=== PATIENT | female | born 1960 | race Caucasian/White ===

== ENCOUNTER → 2017-12-30 | Outpatient (CLI) | payer BC ==
[2017-12-30 16:24] LABS: Appearance,Urine Clear (Clear); Bilirubin,Urine Negative (Negative); Blood,Urine Negative (Negative); Color,Urine Light Yellow; Glucose,Urine (UA) Negative (Negative); Ketones,Urine Negative (Negative); Leukocyte Esterase,Urine Negative (Negative); Nitrite,Urine Negative (Negative); Protein,Urine Negative (Negative); Specific Gravity,Urine 1.007 (1.001-1.035); Urobilinogen,Urine <2.0 mg/dL (<2.0)
[2017-12-30 16:25] LABS: HCT 45.8 % (34.0-46.0); MCH 30.1 pg (25.0-35.0); MCHC 32.9 g/dL (31.0-37.0); MCV 91.4 fL (80.0-100.0); Mean Platelet Volume 6.5; Platelet Count 235 k/uL (150-450); RBC 5.01 m/uL (3.80-5.40); RDW 12.6 % (11.5-15.5); WBC 7.7 k/uL (3.8-10.6)
[2017-12-30 16:33] LABS: ALT 49 U/L (9-52); AST 29 U/L (14-36); Albumin 4.6 g/dL (3.5-5.0); Alkaline Phosphatase 74 U/L (38-126); Anion Gap 10 mmol/L; Blood Urea Nitrogen 22 mg/dL (7-17); Calcium 10.3 mg/dL (8.4-10.2); Carbon Dioxide 31 mmol/L (22-30); Chloride 103 mmol/L (98-107); Glucose 120 mg/dL (74-99); Partial Thromboplastin Time 22.9 sec (22.0-30.0); Potassium 3.7 mmol/L (3.5-5.1); Prothrombin Time 9.7 sec (9.0-12.0); Sodium 144 mmol/L (137-145); Total Bilirubin 0.5 mg/dL (0.2-1.3); Total Protein 7.6 g/dL (6.3-8.2)
== END | disposition home or self-care (01) ==
LOC: LABPAT 14:46
PROVIDERS: ATTEND Orthopaedic Surgery
DX: Z01.818 Encounter for other preprocedural examination (principal); Z01.812 Encounter for preprocedural laboratory examination
CPT/HCPCS: 36415; 80053; 81003; 85027; 85610; 85730; 87070; 93005

== ENCOUNTER 2018-01-17 10:49 | Inpatient (IN) | payer BC ==
[2018-01-06 12:13] VITALS: BMI 38.2
[~2018-01-17 10:49] MED LIST: ACETAMINOPHEN TAB 500 MG TAB PO ONE; DEXAMETHASONE SOD PHOSPHATE 10 MG/ML 1 ML VIAL IV ONE; LIDOCAINE 1% 20 ML VIAL (10MG/ML) FOR IV START INTRADERMA PRN; MIDAZOLAM 2 MG/2 ML VIAL IV PRN; ONDANSETRON 4 MG/2 ML VIAL IVP ONE; TRANEXAMIC ACID 1,000 MG in SODIUM CHLORIDE 0.9% 50 ML IVPB ONE; ceFAZolin IN SWFI 2 GM/20 ML SYRINGE IVP ONE; fentaNYL (PF) 50 MCG/ML 2 ML AMP IV PRN
[2018-01-17 11:39] LABS: Glucose,Whole Blood 121 mg/dL (75-99)
[2018-01-17] MEDS: LACTATED RINGERS 1,000 ML IV SCH ×4 (11:44→21:08)
[2018-01-17] MEDS ORDERED: ceFAZolin 3,000 MG in SODIUM CHLORIDE 0.9% IRRIGATIO 3,000 ML IRRIGATION ONE (12:40)
[2018-01-17] MEDS ORDERED: SODIUM CHLORIDE 0.9% 100 ML BAG ONE (12:40)
[2018-01-17] MEDS ORDERED: MIDAZOLAM 2 MG/2 ML VIAL ONE (12:40)
[2018-01-17] MEDS ORDERED: TRANEXAMIC ACID 1,000 MG/10 ML VIAL ONE (12:40)
[2018-01-17] MEDS ORDERED: PROPOFOL 10 MG/ML 20 ML VIAL IV ONE (12:40)
[2018-01-17] MEDS ORDERED: fentaNYL (PF) 50 MCG/ML 2 ML AMP ONE (12:40)
[2018-01-17] MEDS: ROPIVACAINE 246.25 MG, EPINEPHrine 0.5 MG, KETOROLAC 30 MG, cloNIDine HCL/PF 80 MCG, WA... MISCELLANE ONE ×10 (13:19→14:02)
[2018-01-17] MEDS ORDERED: MAGNESIUM HYDROXIDE 2,400 MG/10 ML CUP PO PRN (14:55)
[2018-01-17] MEDS ORDERED: NA PHOS,M-B/NA PHOS,DI-BA 133 ML ENEMA RECTAL PRN (14:55)
[2018-01-17] MEDS ORDERED: TEMAZEPAM 15 MG CAP PO PRN (14:55)
[2018-01-17] MEDS ORDERED: BISACODYL 10 MG SUPP RECTAL PRN (14:55)
[2018-01-17] MEDS ORDERED: HYDROcodone/APAP 5-325MG 1 EACH TAB PO PRN (14:55)
[2018-01-17] MEDS ORDERED: HYDROmorphone 1 MG/ML 1 ML SYRINGE IVP PRN ×2 (14:55)
[2018-01-17] MEDS ORDERED: NALOXONE 0.4 MG/ML 1 ML VIAL IV PRN (14:55)
--- NOTE | 2018-01-17 15:08 | P.OP ---
Date of Procedure: 01/17/18 Procedure(s) Performed: PREOPERATIVE DIAGNOSIS: Left knee severe osteoarthritis with genu varum POSTOPERATIVE DIAGNOSIS: Left knee severe osteoarthritis with genu varum OPERATION: Left knee cemented total replacement arthroplasty. ANESTHESIA: Spinal ESTIMATED BLOOD LOSS: 100 ml. MARINE STEAM FITTER: Jammie Hutchins PA-C (assistance with: patient positioning, retraction, exposure, hemostasis, leg positioning, implantation, irrigation, closure, dressing) COMPLICATIONS: None apparent. COMPONENTS IMPLANTED: Persona system from [employer] INDICATIONS: Mrs. Reid is 57 year old with a history of left knee osteoarthritis. Conservative treatment has been tried and has been unsuccessful in controlling symptoms adequately. The operation of knee replacement has been discussed at length in the office, as well as potential risks and complications. These are inclusive of, but not limited to: bleeding, infection, scarring, discomfort, blood vessel and nerve damage, need for further surgery, failure to relieve symptoms, persistence, recurrence, or worsening of problems, loosening, dislocation, wear, blood clot, pulmonary embolism, , gait dysfunction, stiffness, and other risks as discussed in the office. The patient elects to proceed and the consent form has been signed. PROCEDURE: The patient was taken to the operating room and positioned on the operating room table in the supine position. Anesthesia was initiated. Care was taken to make sure that all pressure points were adequately padded. The operative lower extremity was prepped and draped in the usual aseptic fashion using ChloraPrep. Ioban drape was used for the case and the patient received intravenous antibiotics within one hour of the incision. A pneumotourniquet and leg turpin were used for the case. The limb was exsanguinated with an Esmarch bandage and the tourniquet was inflated to 350 mmHg. Time-out was called confirming the patient's identity, side, procedure and administration of antibiotics and tranexamic acid, 1 g IV. The incision was then created midline directly over the knee, carried down through skin and into the subcutaneous tissues and down to fascia. Full thickness subcutaneous medial flap was developed. Medial parapatellar arthrotomy was performed and the interior of the knee was inspected. There was end-stage osteoarthritis of the knee with a mild to moderate genu varum type deformity. The fat pad was excised and proximal medial release on the tibia was completed using meticulous dissection and a curved osteotome. The anterior cruciate ligament was taken down. Note was made of significant attrition of the anterior and significant degenerative appearance of the posterior cruciate ligaments. The exposure was excellent. The knee was flexed 90 degrees and the patella was everted. A spot was chosen on the femur approximately 1 cm anterior to the posterior cruciate ligament insertion and an intramedullary hole was created within the femur. The intramedullary guide was then set to 5 degrees of valgus. The distal cutting block was attached and pinned into position. An appropriate amount of distal femoral resection was set. The oscillating saw was then used to make the distal femoral cut. This cut was confirmed to be flat with the flat end of an osteotome. The retractors were placed around the tibia and the tibial surface was addressed. The angle and depth of resection was adjusted using an extramedullary cutting guide. The guide had a built-in 3 degree posterior slope cut. Once the cutting guide was adjusted appropriately and in line with the axis of the tibia and confirmed to be in good position in relation to the second metatarsal and transmalleolar axis, the tibial cut was then created with protection of the posterior neurovascular structures and the collateral ligaments. The tibial cut surface was removed and sized. Femoral sizing was then accomplished using anterior referencing. Care was taken to analyze the posterior condyles for signs of deficiency or severe wear, and adjustments to the guide were made, as appropriate. 3 degree external rotation pins were placed. The cutting jig for the femur was applied to these pins. The planned cuts were further analyzed prior to performing them with the oscillating saw. No femoral notching was produced. Bone fragments were removed and the cut surfaces were finished, as necessary, with a reciprocating saw. Spacer block technique was then used to confirm that the flexion and extension gaps were equal. Soft tissue releases and adjustment of the tibial and/or femoral cuts were made, as necessary, until the gaps were equal. This included release of the posterior cruciate ligament, which was tight in this patient. The femur was then further finished for a posterior cruciate ligament substituting component. Patellar resurfacing was performed using a reamer. The size of the required patellar component was estimated and the patellar surface was then reamed down to a residual thickness which would recreate the [place] thickness with the component. The exact placement of the patellar component was adjusted for position based on preoperative x-rays and intraoperative findings. Prior to placing trial components, anesthetic solution consisting of ropivicaine with epinephrine, ketorolac, and clonidine was injected carefully and methodically in a grid pattern using aspiration technique into the soft tissue around the knee circumferentially, starting with the deeper tissues first and progressing to fascia, and then finally the skin/subcutaneous tissue. Particular care was taken when injecting the posterior capsule. The trial components were inserted. The tibial tray was allowed to self center and the patella was noted to track very well. The position of the tibial component was marked and the tibia was then finished for a stemmed tibial component. Cement was mixed on the back table and applied to the final components. Trial components were removed and the cut surfaces of the bone were pulse lavaged thoroughly and dried. Cement was then applied to the tibial surface and pressurized into the surface using finger pressurization technique. The tibial component was then applied and excess cement was removed after it was impacted securely and noted to be flush with the cut surface. In similar fashion, the cement was applied to the cut femoral surface, pressurized in using finger pressurization and the component was impacted into place. Excess cement was removed. The polyethylene spacer was then implanted and locked into position. The patellar component was then applied in similar technique and a patellar clamp was used to hold the patella in place as the cement hardened. Once the cement had fully hardened, the knee was reinspected. Any other cement extrusion was removed and final kinematic testing showed range of motion from 0 to 130 degrees with excellent stability, both medially and laterally and appropriate alignment of the leg. Patellar tracking was excellent. The knee was then thoroughly pulse lavaged with normal saline. The tourniquet was deflated and hemostasis was obtained with electrocautery and IV tranexamic acid, 1 g given prior to inflation of the tourniquet and another gram given at the time of closure. Closure was with #2 Ethibond in the fascia and supplemented with #2 Quill, 2-0 Vicryl suture was used for the subcutaneous tissues and 3-0 Quill for the skin. Dermabond/Steri-Strips were then applied. A lightly compressive dressing was applied using Webril and an Shantanu wrap. The patient was then transferred to stretcher and taken to the recovery room in stable condition. Sponge and needle counts were correct.
--- NOTE | 2018-01-17 15:21 | XR ---
EXAMINATION TYPE: XR knee limited LT DATE OF EXAM: 01/17/2018 CLINICAL HISTORY: Postoperative evaluation Two views of the left knee are submitted. Identified are changes of total knee arthroplasty with fem oral and tibial components appearing well seated. Postsurgical soft tissue changes are noted. Align ment is anatomic.
[2018-01-17 16:48] LABS: Glucose,Whole Blood 133 mg/dL (75-99)
[2018-01-17] MEDS: HYDROmorphone 1 MG/ML 1 ML SYRINGE IVP PRN ×2 (17:21→21:05)
[2018-01-17] MEDS ORDERED: WARFARIN 5 MG TAB PO ONE (18:00)
[2018-01-17 20:17] LABS: Glucose,Whole Blood 145 mg/dL (75-99)
[2018-01-17] MEDS ORDERED: SENNOSIDES-DOCUSATE SODIUM 1 EACH TAB PO SCH (21:00)
[2018-01-17] MEDS: ceFAZolin IN SWFI 2 GM/20 ML SYRINGE IVP SCH (21:06)
[2018-01-17] MEDS: INSULIN ASPART 100 UNIT/ML 1 ML 10 ML VIAL SQ SCH (21:08)
[2018-01-17] MEDS ORDERED: ONDANSETRON 4 MG/2 ML VIAL IVP PRN (21:29)
--- NOTE | 2018-01-17 23:03 | P.CONS ---
History of Present Illness - Reason for Consult Consult date: 01/17/18 medical management post op for DM and HTN Requesting physician: Cedric Barrow - Chief Complaint scheduled left TKA - History of Present Illness 57-year-old female with history of diabetes mellitus and hypertension. Patient presented for scheduled left totalknee arthroplasty due to long- standing osteoarthritis and pain limiting daily activity. Patient tolerated procedure well with no observed immediate postoperative complications. Patient currently denies any chest pain or trouble breathing denies any fevers or chills denies any coughing denies any GI bleeding denies any abdominal pain nausea vomiting or any changes in her bowel or urinary habits. Patient tolerated by mouth intake postop, passed urine no Occasions. Currently feels comfortable with pain controlled with pain medications. Review of Systems Pertinent positives as noted in HPI. All other systems were reviewed and are negative Past Medical History Past Medical History: Diabetes Mellitus, Hypertension, Osteoarthritis (OA) History of Any Multi-Drug Resistant Organisms: None Reported Past Surgical History: Orthopedic Surgery Additional Past Surgical History / Comment(s): ORIF LT ARM. COLONOSCOPY. D & C Past Anesthesia/Blood Transfusion Reactions: No Reported Reaction Smoking Status: Never smoker - Past Family History Mother Family Medical History: No Reported History Medications and Allergies Home Medications Medication Instructions Recorded Confirmed Type Calcium Carbonate/Vitamin D3 1 tablet PO DAILY 01/06/18 01/17/18 History [Calcium 600-Vit D3 400 Tablet] Calcium Phos/Vit D3/Mag Oxide 1 tab PO DAILY 01/06/18 01/17/18 History [Posture-D Caplet] Calcium Polycarbophil [Fibercon] 625 mg PO DAILY 01/06/18 01/17/18 History Cholecalciferol (Vitamin D3) 2,000 unit PO DAILY 01/06/18 01/17/18 History [Vitamin D3] Naproxen Sodium [Aleve] 220 mg PO DAILY 01/06/18 01/17/18 History Olmesartan/Hydrochlorothiazide 1 tab PO DAILY 01/06/18 01/17/18 History [Olmesartan-Hctz 40-25 mg Tab] [place]bph[place] 3-500mg 500 mg PO DAILY 01/06/18 01/17/18 History Potassium Chloride [K-Tab ER] 10 meq PO DAILY 01/06/18 01/17/18 History metFORMIN HCL [Glucophage] 500 mg PO DAILY 01/06/18 01/17/18 History HYDROcodone/APAP 5-325MG [[place] 1 - 2 each PO Q4-6H PRN #50 tab 01/17/18 Rx 5-325] Sennosides-Docusate Sodium 1 tab PO BID #60 tablet 01/17/18 Rx [Senokot-S] Warfarin [Coumadin] 2.5 mg PO DAILY #1 tab 01/17/18 Rx Allergies Allergy/AdvReac Type Severity Reaction Status Date / Time No Known Allergies Allergy Verified 01/17/18 19:14 Physical Exam Vitals: Vital Signs Temp Pulse Resp BP Pulse Ox 01/17/18 18:34 74 16 129/85 96 01/17/18 18:04 66 16 116/74 94 L 01/17/18 17:30 68 16 143/68 98 01/17/18 17:06 74 16 123/78 95 01/17/18 16:45 72 16 117/75 97 01/17/18 16:20 71 16 117/72 96 01/17/18 16:05 72 16 114/72 94 L 01/17/18 15:45 73 16 113/65 92 L 01/17/18 15:37 70 16 108/65 94 L 01/17/18 15:15 72 16 114/67 99 01/17/18 15:00 72 16 116/66 99 01/17/18 14:52 97.6 F 74 16 116/66 98 01/17/18 11:37 98.4 F 79 16 145/90 94 L Intake and Output 01/17/18 01/17/18 01/17/18 06:59 14:59 22:59 Intake Total 701 675 Output Total 50 Balance 651 675 Intake: IV 701 675 Output: Estimated Blood Loss 50 Constitutional: No acute distress, conversant, pleasant Eyes: Anicteric sclerae, moist conjunctiva, no lid-lag Pupils equal round reactive to light ENMT: NC/AT Oropharynx clear, no erythema, exudates Neck: Supple, FROM, no masses, or JVD No carotid bruits No thyromegaly Lungs: Clear to auscultation Clear to percussion Normal respiratory effort, no accessory muscle use Cardiovascular: Heart regular in rate and rhythm, No murmurs, gallops, or rubs No peripheral edema Abdominal: Soft Nontender, no guarding, rebound or rigidity Abdomen moving with respiration Normoactive bowel sounds No hepatomegaly, No splenomegaly No palpable mass No abdominal wall hernia noted Skin: Normal temperature, tone, texture, turgor No induration No subcutaneous nodules No rash, lesions No ulcers Extremities: Surgical dressing and Shantanu wrap in over left lower extremity postoperatively looks dry and intact and clean No digital cyanosis No clubbing Pedal pulses intact and symmetrical Radial pulses intact and symmetrical No calf tenderness Psychiatric: Alert and oriented to person, place and time Appropriate affect fair judgment Neuro Muscles Strength 5/5 in all 4 extremities , except for limited exam over left lower extremity due to postoperative pain Sensation to light touch grossly present throughout Cranial nerves II-XII grossly intact No focal sensory deficits Lymphatics: no palpable cervical or supraclavicular , or inguinal lymph nodes Results Labs: Abnormal Lab Results - Last 24 Hours (Table) 01/17/18 01/17/18 01/17/18 Range/Units 11:37 16:43 20:04 POC Glucose (mg/dL) 121 H 133 H 145 H (75-99) mg/dL Assessment and Plan Assessment: 57 year old female , underwent scheduled left total knee arthroplasty , medicine consulted for post surgical medical management of her DM and hypertension, patient doing well, tolerated procedure with no observed immediate post operative complications Plan: post left total knee arthroplasty , POD #zero pain control DVT ppx per ortho hypertension currently controlled resume home meds olsartan HCTz Diabetes mellitus type II, controlle d hold metformin Insulin sliding scale while inpatient resume metformin upon discharge DVT ppx on coumadin per ortho for post knee replacement full code follow up morning labs Thank you for allowing us to participate in the care of this patient. Do not hesitate to contact us with questions. Someone can be reached from the [facility] hospitalist group at all hours of the day at [phone].
[2018-01-18] MEDS: LACTATED RINGERS 1,000 ML IV SCH (01:36)
[2018-01-18] MEDS: ceFAZolin IN SWFI 2 GM/20 ML SYRINGE IVP SCH (03:57)
[2018-01-18 07:30] LABS: Glucose,Whole Blood 122 mg/dL (75-99)
[2018-01-18] MEDS: INSULIN ASPART 100 UNIT/ML 1 ML 10 ML VIAL SQ SCH ×3 (07:30→13:06)
[2018-01-18 07:41] LABS: INR 1.3 (<1.2)
[2018-01-18 07:46] LABS: Basophils % (A) 0 %; Eosinophils % (A) 0 %; HCT 36.8 % (34.0-46.0); HGB 12.1 gm/dL (11.4-16.0); Lymphocytes # (A) 1.4 k/uL (1.0-4.8); Lymphocytes % (A) 14 %; MCH 30.2 pg (25.0-35.0); MCHC 32.8 g/dL (31.0-37.0); MCV 91.9 fL (80.0-100.0); Mean Platelet Volume 6.4; Monocytes # (A) 0.6 k/uL (0-1.0); Monocytes % (A) 6 %; Neutrophils # (A) 7.8 k/uL (1.3-7.7); Neutrophils % (A) 78 %; Platelet Count 232 k/uL (150-450); RBC 4.01 m/uL (3.80-5.40); RDW 12.4 % (11.5-15.5)
[2018-01-18 07:57] LABS: Anion Gap 8 mmol/L; Blood Urea Nitrogen 21 mg/dL (7-17); Calcium 8.9 mg/dL (8.4-10.2); Carbon Dioxide 28 mmol/L (22-30); Chloride 105 mmol/L (98-107); Glucose 123 mg/dL (74-99); Potassium 3.9 mmol/L (3.5-5.1); Sodium 141 mmol/L (137-145)
[2018-01-18] MEDS: HYDROcodone/APAP 5-325MG 1 EACH TAB PO PRN ×2 (08:25→14:22)
[2018-01-18] MEDS: hydrOXYzine PAMOATE 25 MG CAP PO PRN ×2 (08:26→14:22)
[2018-01-18] MEDS ORDERED: LOSARTAN 50 MG TAB PO SCH (09:00)
[2018-01-18] MEDS ORDERED: HYDROCHLOROTHIAZIDE 25 MG TAB PO SCH (09:00)
[2018-01-18 09:20] VITALS: BP 117/74; PULSE 72; RESP 18; TEMP 97.5
--- NOTE | 2018-01-18 09:40 | P.PN ---
Subjective Progress Note Date: 01/18/18 Principal diagnosis: Left knee pain Patient is a 57-year-old female with a past medical history of diabetes, hypertension, osteoarthritis who presented for an elective left total knee arthroplasty. She tolerated the procedure well with no immediate postoperative complications. Patient seen and examined at bedside. She states that she is having some increased pain this morning. She took 2 Seanor approximately 45 minutes only seemed to be kicking in. She was difficulty moving her knee secondary to stiffness and pain. She denies any nausea, vomiting, diarrhea, or constipation. She's not having a chest pain or shortness of breath. She has borderline diabetes back in June does not know her current hemoglobin A1c. She sees Paulino Farris out of [place] for her PCP. Objective - Vital Signs Vital signs: Vital Signs Temp 97.5 F L 01/18/18 07:00 Pulse 72 01/18/18 07:00 Resp 18 01/18/18 07:00 BP 117/74 01/18/18 07:00 Pulse Ox 95 01/18/18 07:00 Intake & Output 01/17/18 01/18/18 01/18/18 18:59 06:59 18:59 Intake Total 1376 450 Output Total 50 Balance 1326 450 Intake: IV 1376 Intake, IV Titration 200 Amount Lactated Ringers 1,000 ml 200 @ 100 mls/hr IV .Q10H CHARLES Rx#:[id number] Oral 250 Output: Estimated Blood Loss 50 Other: Voiding Method Toilet # Voids 1 - Exam General: non toxic, no distress, appears at stated age, obese Derm: warm, dry Head: atraumatic, normocephalic, symmetric Eyes: EOMI, no lid lag, anicteric sclera Mouth: no lip lesion, mucus membranes moist Cardiovascular: S1S2 reg, no murmur, positive posterior tibial pulse bilateral, Lungs: Decreased breath sounds bilateral bases, no rhonchi, no rales , no accessory muscle use Abdominal: soft, nontender to palpation, no guarding, no appreciable organomegaly Ext: Left lower extremity with dressing in place over medial knee no gross muscle atrophy, no edema, no contractures Neuro: CN II-XI grossly intact, no focal neuro deficits Psych: Alert, oriented, appropriate affect - Labs CBC & Chem 7: 01/18/18 06:19 01/18/18 06:19 Labs: Abnormal Lab Results - Last 24 Hours (Table) 01/17/18 01/17/18 01/17/18 Range/Units 11:37 16:43 20:04 Neutrophils # (1.3-7.7) k/uL INR (<1.2) BUN (7-17) mg/dL Glucose (74-99) mg/dL POC Glucose (mg/dL) 121 H 133 H 145 H (75-99) mg/dL 01/18/18 01/18/18 01/18/18 Range/Units 06:19 06:19 06:19 Neutrophils # 7.8 H (1.3-7.7) k/uL INR 1.3 H (<1.2) BUN 21 H (7-17) mg/dL Glucose 123 H (74-99) mg/dL POC Glucose (mg/dL) (75-99) mg/dL 01/18/18 Range/Units 07:17 Neutrophils # (1.3-7.7) k/uL INR (<1.2) BUN (7-17) mg/dL Glucose (74-99) mg/dL POC Glucose (mg/dL) 122 H (75-99) mg/dL Assessment and Plan Assessment: Osteoarthritis status post left total knee arthroplasty -DVT management per orthopedics surgery -PT/OT -Pain control -Fall precautions Diabetes mellitus type 2 controlled without complicating conditions -off of metformin -Sliding-scale insulin -Follow up with PCP 3 days after discharge Hypertension, controlled -Continue with hydrochlorothiazide, Cozaar -Continue to follow blood pressures Obesity, BMI 38.3 -Structured outpatient weight loss Patient is medically stable for discharge at the discretion of orthopedic surgery. Referred home health care's residential followed by Shilpa. Orders for medications placed on discharge plan. Discussed with nursing and case management.
--- NOTE | 2018-01-18 10:58 | P.DS ---
Providers Date of admission: 01/17/18 10:49 Expected date of discharge: 01/18/18 Attending physician: Yovanny Coello Consults: 01/17/18 14:55 Consult Physician Routine Consulting Provider: Paulino Farris Consult Reason/Comments: medical management Do you want consulting provider notified?: Yes 01/17/18 19:20 Consult Physician Routine Consulting Provider: Marissa Peñaloza Consult Reason/Comments: medical managmenet Do you want consulting provider notified?: Already Contacted Primary care physician: Stated None - Discharge Diagnosis(es) (1) Osteoarthritis of left knee Current Visit: Yes Status: Acute (2) Status post total left knee replacement Current Visit: Yes Status: Acute (3) Non-insulin dependent type 2 diabetes mellitus Current Visit: Yes Status: Acute Hospital Course: This is a 57-year-old female who was last seen with complaint of continued left knee pain. The patient has a known history of degenerative arthritis of the left knee and presents to discuss surgical options. After discussion and consideration the patient elects to proceed with total left knee arthroplasty. The patient is seen preoperatively by her primary care physician and cleared for surgery. The patient is admitted to [facility] for total left knee arthroplasty. The procedures performed without complication or sequelae. He is doing well postoperatively. Vital signs are stable at discharge. Labs are stable at discharge. the patient is ambulating well with walker with minimal assistance. The patient is discharged to home on postop day #1 pending medical clearance. Please see orders and refer to the med rec for accurate list of medications. Patient Condition at Discharge: Good Plan - Discharge Summary Discharge Rx Participant: Yes New Discharge Prescriptions: New HYDROcodone/APAP 5-325MG [[place] 5-325] 1 - 2 each PO Q4-6H PRN #50 tab PRN Reason: Pain Sennosides-Docusate Sodium [Senokot-S] 1 tab PO BID #60 tablet Warfarin [Coumadin] 2.5 mg PO DAILY #1 tab Continue Potassium Chloride [K-Tab ER] 10 meq PO DAILY metFORMIN HCL [Glucophage] 500 mg PO DAILY Olmesartan/Hydrochlorothiazide [Olmesartan-Hctz 40-25 mg Tab] 1 tab PO DAILY Calcium Polycarbophil [Fibercon] 625 mg PO DAILY [place] 3-500mg 500 mg PO DAILY No Action Cholecalciferol (Vitamin D3) [Vitamin D3] 2,000 unit PO DAILY Naproxen Sodium [Aleve] 220 mg PO DAILY Calcium Carbonate/Vitamin D3 [Calcium 600-Vit D3 400 Tablet] 1 tablet PO DAILY Calcium Phos/Vit D3/Mag Oxide [Posture-D Caplet] 1 tab PO DAILY Discharge Medication List Calcium Carbonate/Vitamin D3 [Calcium 600-Vit D3 400 Tablet] 1 tablet PO DAILY 01/06/18 [History] Calcium Phos/Vit D3/Mag Oxide [Posture-D Caplet] 1 tab PO DAILY 01/06/18 [ History] Calcium Polycarbophil [Fibercon] 625 mg PO DAILY 01/06/18 [History] Cholecalciferol (Vitamin D3) [Vitamin D3] 2,000 unit PO DAILY 01/06/18 [History] Naproxen Sodium [Aleve] 220 mg PO DAILY 01/06/18 [History] Olmesartan/Hydrochlorothiazide [Olmesartan-Hctz 40-25 mg Tab] 1 tab PO DAILY 02/13 [History] [place] 3-500mg 500 mg PO DAILY 01/06/18 [History] Potassium Chloride [K-Tab ER] 10 meq PO DAILY 01/06/18 [History] metFORMIN HCL [Glucophage] 500 mg PO DAILY 01/06/18 [History] HYDROcodone/APAP 5-325MG [[place] 5-325] 1 - 2 each PO Q4-6H PRN #50 tab 01/17/18 [Rx] Sennosides-Docusate Sodium [Senokot-S] 1 tab PO BID #60 tablet 01/17/18 [Rx] Warfarin [Coumadin] 2.5 mg PO DAILY #1 tab 01/17/18 [Rx] Follow up Appointment(s)/Referral(s): Jammie Hutchins PAC [PHYSICIAN HOTEL SERVICE SUPERVISOR] - 01/31/18 2:25 pm Paulino Farris, ISIDORO [REFERRING] - 1 Week Ambulatory/Diagnostic Orders: Continuous Passive Motion (CPM) Machine [DME.AMB1] Time Frame: 3 Weeks, Facility : [facility], Location: Case Management Continuous Passive Motion (CPM) Machine [DME.AMB1] Time Frame: 3 Weeks, Facility : [facility], Location: Case Management Prothrombin Time INR [LAB.AMB] Location: None Selected Prothrombin Time INR [LAB.AMB] Location: None Selected Activity/Diet/Wound Care/Special Instructions: May bear wt as tolerated with walker. May shower if no drainage from incision. CPM 5-6h daily. Discharge Disposition: HOME WITH HOME HEALTH SERVICES
[2018-01-18 11:51] LABS: Glucose,Whole Blood 137 mg/dL (75-99)
[2018-01-18] MEDS ORDERED: WARFARIN 5 MG TAB PO ONE (18:00)
== END 2018-01-18 15:10 | disposition home health service (06) | DRG 470 ==
LOC: 2ORMAIN 10:49 → 4SSUR 14:39
PROVIDERS: ADMIT Orthopaedic Surgery; ATTEND Orthopaedic Surgery
PROC: 0SRD0J9 Replacement of Left Knee Joint with Synthetic Substitute, Cemented, Open Approach (ICD-10-PCS; principal; 2018-01-17 12:30)
DX: M17.12 Unilateral primary osteoarthritis, left knee (principal); E11.9 Type 2 diabetes mellitus without complications; E66.9 Obesity, unspecified; Z68.38 Body mass index [BMI] 38.0-38.9, adult; Z71.3 Dietary counseling and surveillance; I10 Essential (primary) hypertension; M21.162 Varus deformity, not elsewhere classified, left knee; Z79.01 Long term (current) use of anticoagulants; Z79.84 Long term (current) use of oral hypoglycemic drugs; Z79.899 Other long term (current) drug therapy; Z83.3 Family history of diabetes mellitus; Z82.49 Family history of ischemic heart disease and other diseases of the circulatory system
CPT/HCPCS: 80048; 85025; 85610; 88300

== ENCOUNTER → 2018-04-05 | Outpatient (CLI) | payer BC ==
[2018-04-05 10:10] VITALS: BP 137/86; PULSE 80; RESP 18; TEMP 97.4; BMI 37.4
--- NOTE | 2018-04-05 10:38 | P.HPOB ---
History of Present Illness H&P Date: 04/05/18 Chief Complaint: The patient is here for her routine gynecologic exam and mammogram. This is a 57-year-old with an LMP of 2006. The patient is without gynecologic complaints and denies any postmenopausal bleeding. Review of Systems The patient has lost 7 pounds over the last year. She denies respiratory, cardiac, or G.I. problems. 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 History of Any Multi-Drug Resistant Organisms: None Reported Past Surgical History: Joint Replacement (Knee replacement), Orthopedic Surgery , Tubal Ligation Additional Past Surgical History / Comment(s): ORIF LT ARM. COLONOSCOPY 2013( multiple in past). D & C. 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 - Past Family History Mother Family Medical History: Diabetes Mellitus Additional Family Medical History / Comment(s): Aortic aneurysm Father Family Medical History: Myocardial Infarction ([place]) Son(s) Additional Family Medical History / Comment(s): at age 19 from an aortic transposition. Medications and Allergies Home Medications Medication Instructions Recorded Confirmed Type Calcium Carbonate/Vitamin D3 1 tablet PO DAILY 01/06/18 01/17/18 History [Calcium 600-Vit D3 400 Tablet] Calcium Phos/Vit D3/Mag Oxide 1 tab PO DAILY 01/06/18 01/17/18 History [Posture-D Caplet] Calcium Polycarbophil [Fibercon] 625 mg PO DAILY 01/06/18 01/17/18 History Cholecalciferol (Vitamin D3) 2,000 unit PO DAILY 01/06/18 01/17/18 History [Vitamin D3] Olmesartan/Hydrochlorothiazide 1 tab PO DAILY 01/06/18 01/17/18 History [Olmesartan-Hctz 40-25 mg Tab] [place] 3-500mg 500 mg PO DAILY 01/06/18 01/17/18 History Potassium Chloride [K-Tab ER] 10 meq PO DAILY 01/06/18 01/17/18 History metFORMIN HCL [Glucophage] 500 mg PO DAILY 01/06/18 01/17/18 History Allergies Allergy/AdvReac Type Severity Reaction Status Date / Time No Known Allergies Allergy Verified 01/17/18 19:14 Exam Vital Signs Temp Pulse Resp BP Pulse Ox 04/05/18 09:47 97.4 F L 80 18 137/86 95 Intake and Output 04/04/18 04/05/18 04/05/18 22:59 06:59 14:59 Other: Weight 102.058 kg Height 5'5", weight 225 pounds, BMI 37.4. This is a well-developed well-nourished heavyset white female who is alert and oriented times 3 in no acute distress. HEENT: Within normal limits. NECK: Supple without mass or thyromegaly. CHEST AND LUNGS: Clear to auscultation. HEART: Regular rate and rhythm. BREASTS: Are without mass or discharge. AXILLARY EXAM: Negative for adenopathy. BACK: Negative for CVA tenderness. ABDOMEN: Soft, nontender, without palpable masses. PELVIC EXAM: Normal external genitalia with minimal atrophy. Cervix and vagina appear normal with minimal atrophy. There is no unusual discharge. There is no evidence of prolapse. The uterus is midposition, nongravid size and nontender. There are no palpable adnexal masses or tenderness. RECTAL EXAM: rectovaginal exam is negative for mass or tenderness and is negative for occult blood. EXTREMITIES: Nontender. IMPRESSION: 1. 57-year-old menopausal female with normal gynecologic exam. PLAN: 1. Pap smear was deferred since she had a normal one less than 2 years ago. 2. Self breast awareness was discussed with the patient. 3. Screening mammogram will be done today. 4. Osteoporosis prevention was discussed. I have stressed the importance of adequate calcium, vitamin D and regular exercise. Recommended amounts of calcium and vitamin D were also discussed. 5. The patient states she is due for a colonoscopy later this year and she states she will arrange for this. 6. She will return in one year.
--- NOTE | 2018-04-09 07:46 | MM ---
Reason for exam: screening (asymptomatic). Last mammogram was performed 1 year and 1 month ago. History: Patient is postmenopausal. Family history of breast cancer in aunt at age 60. MG 3D Screening Mammo W/Cad Bilateral CC and MLO view(s) were taken. Prior study comparison: February 24, 2017, bilateral MG 3d screening mammo w/cad. February 18, 2016, bilateral MG 3d screening mammo w/cad. The breast tissue is heterogeneously dense. This may lower the sensitivity of mammography. There are benign-appearing round calcifications bilateral breast. Chronic nodularity right breast. No discrete abnormality. ASSESSMENT: Benign, BI-RAD 2 RECOMMENDATION: Routine screening mammogram of both breasts in 1 year.
== END ==
LOC: WWCWWP 09:43
PROVIDERS: ATTEND Obstetrics & Gynecology
DX: Z12.31 Encounter for screening mammogram for malignant neoplasm of breast (principal)
CPT/HCPCS: 77063; 77067

== ENCOUNTER → 2019-05-02 | Outpatient (CLI) | payer BC ==
[2019-05-02 10:39] VITALS: BP 119/87; PULSE 78; RESP 18; TEMP 97.7
--- NOTE | 2019-05-02 11:25 | P.HPOB ---
History of Present Illness H&P Date: 05/02/19 Chief Complaint: The patient is here for her routine gynecologic exam and ma mmogram. This is a 59-year-old 002 with an LMP of 2006. The patient is without gynecologic complaints and denies any postmenopausal bleeding. Review of Systems The patient has gained 6 pounds over the last year. She denies respiratory, cardiac, or G.I. problems. Past Medical History Past Medical History: Diabetes Mellitus, Hypertension, Osteoarthritis (OA) Additional Past Medical History / Comment(s): Type 2 diabetes. 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 History of Any Multi-Drug Resistant Organisms: None Reported Past Surgical History: Joint Replacement, Orthopedic Surgery, Tubal Ligation Additional Past Surgical History / Comment(s): ORIF LT ARM. COLONOSCOPY 2013(multiple in past). D & C. 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 - Past Family History Mother Family Medical History: Diabetes Mellitus Additional Family Medical History / Comment(s): Aortic aneurysm Father Family Medical History: Myocardial Infarction ([place]) Son(s) Additional Family Medical History / Comment(s): at age 19 from an aortic transposition. Brother(s) Family Medical History: Cancer Additional Family Medical History / Comment(s): 2 brothers with prostate cancer. Medications and Allergies Home Medications Medication Instructions Recorded Confirmed Type Calcium Carbonate/Vitamin D3 1 tablet PO DAILY 01/06/18 05/02/19 History [Calcium 600-Vit D3 400 Tablet] Calcium Phos/Vit D3/Mag Oxide 1 tab PO DAILY 01/06/18 05/02/19 History [Posture-D Caplet] Calcium Polycarbophil [Fibercon] 625 mg PO DAILY 01/06/18 05/02/19 History Cholecalciferol (Vitamin D3) 2,000 unit PO DAILY 01/06/18 05/02/19 History [Vitamin D3] Olmesartan/Hydrochlorothiazide 1 tab PO DAILY 01/06/18 05/02/19 History [Olmesartan-Hctz 40-25 mg Tab] [place] 3-500mg 500 mg PO DAILY 01/06/18 05/02/19 History Potassium Chloride [K-Tab ER] 10 meq PO DAILY 01/06/18 05/02/19 History metFORMIN HCL [Glucophage] 500 mg PO DAILY 01/06/18 05/02/19 History Allergies Allergy/AdvReac Type Severity Reaction Status Date / Time No Known Allergies Allergy Verified 05/02/19 10:42 Exam Vital Signs Temp Pulse Resp BP Pulse Ox 05/02/19 10:34 97.7 F 78 18 119/87 94 L Intake and Output 05/01/19 05/02/19 05/02/19 22:59 06:59 14:59 Other: Weight 104.78 kg Height 5 feet 5 inches, weight 231 pounds, BMI 38.4. This is a well-developed well-nourished heavyset white female who is alert and oriented times 3 in no acute distress. HEENT: Within normal limits. NECK: Supple without mass or thyromegaly. CHEST AND LUNGS: Clear to auscultation. HEART: Regular rate and rhythm. BREASTS: Are without mass or discharge. AXILLARY EXAM: Negative for adenopathy. BACK: Negative for CVA tenderness. ABDOMEN: Soft, nontender, without palpable masses. PELVIC EXAM: Normal external genitalia with mild atrophy. Cervix and vagina appear normal with mild atrophy. There is no unusual discharge. There is no evidence of prolapse. The uterus is midposition, nongravid size and nontender. There are no palpable adnexal masses or tenderness. RECTAL EXAM: Rectovaginal exam is negative for mass or tenderness and is negative for occult blood. EXTREMITIES: Nontender. IMPRESSION: 1. 59-year-old menopausal female with normal gynecologic exam. PLAN: 1. Pap smear was performed. 2. Self breast awareness was discussed with the patient. 3. Screening mammogram will be done today. 4. Osteoporosis prevention was discussed. I have stressed the importance of adequate calcium, vitamin D and regular exercise. Recommended amounts of calcium and vitamin D were also discussed. I have recommended bone density testing which she has never had done. The order slip was given to the patient for this. 5. She believes she is due for her screening colonoscopy and she will discuss this with her primary caregiver. 6. She was advised to return in one year for her annual well woman exam.
--- NOTE | 2019-05-03 10:52 | MM ---
Reason for exam: screening (asymptomatic). Last mammogram was performed 1 year and 1 month ago. History: Patient is postmenopausal. Family history of breast cancer in aunt at age 60. Physical Findings: A clinical breast exam by your physician is recommended on an annual basis and results should be correlated with mammographic findings. MG Screening Mammo w CAD Bilateral CC and MLO view(s) were taken. Prior study comparison: April 05, 2018, bilateral MG 3d screening mammo w/cad. February 24, 2017, bilateral MG 3d screening mammo w/cad. There are scattered fibroglandular densities. There is chronic nodularity in the right breast. Scattered punctate calcifications bilaterally. No significant changes when compared with prior studies. ASSESSMENT: Benign, BI-RAD 2 RECOMMENDATION: Routine screening mammogram of both breasts in 1 year.
== END | disposition home or self-care (01) ==
LOC: WWCWWP 10:17
PROVIDERS: ATTEND Obstetrics & Gynecology
DX: Z12.31 Encounter for screening mammogram for malignant neoplasm of breast (principal)
CPT/HCPCS: 77067

== ENCOUNTER → 2020-07-19 | Outpatient (CLI) | payer OTHER ==
[2020-07-19 19:25] LABS: HCT 43.8 % (37.2-46.3); HGB 14.2 g/dL (12.0-15.0); MCH 30.1 pg (27.0-32.0); MCHC 32.4 g/dL (32.0-37.0); MCV 92.8 fL (80.0-97.0); Mean Platelet Volume 9.5 fL (9.5-12.2); Platelet Count 257 X 10*3/uL (140-440); RBC 4.72 X 10*6/uL (4.10-5.20); RDW 12.6 % (11.5-14.5); WBC 6.73 X 10*3/uL (4.50-10.00)
[2020-07-19 20:49] LABS: Hemoglobin A1C 5.9 % (4.0-6.0)
== END | disposition home or self-care (01) ==
LOC: LABWHC1 10:15
PROVIDERS: ATTEND Orthopaedic Surgery
DX: Z47.1 Aftercare following joint replacement surgery (principal); I11.9 Hypertensive heart disease without heart failure; E11.8 Type 2 diabetes mellitus with unspecified complications; M17.11 Unilateral primary osteoarthritis, right knee; M51.36 Other intervertebral disc degeneration, lumbar region; M54.5 Low back pain; M25.562 Pain in left knee; M25.561 Pain in right knee; Z68.38 Body mass index [BMI] 38.0-38.9, adult; Z96.652 Presence of left artificial knee joint
CPT/HCPCS: 36415; 83036; 85027; 87070

== ENCOUNTER 2021-01-13 12:17 | Day surgery (SDC) | payer OTHER ==
[2021-01-13 12:49] LABS: Glucose,Whole Blood 113 mg/dL (75-99)
[2021-01-13 12:54] VITALS: TEMP 98.3
[2021-01-13 15:01] VITALS: BP 122/88; PULSE 64; RESP 14
--- NOTE | 2021-01-13 16:30 | US ---
ULTRASOUND GUIDED FNA THYROID BIOPSY: CLINICAL HISTORY: Left thyroid nodule FINDINGS: The procedure was explained to the patient. The risks, complications, benefits and alternatives were discussed and any questions were answered. Informed consent was obtained. Patient was placed supin e on the ultrasound table and prepped and draped in the usual sterile fashion. Utilizing a 25 gauge needle, five passes were made into the requested left thyroid nodule. Patient was stable throughout the procedure. Pathology is pending. All elements of maximal barrier technique were utilized. IMPRESSION: 1. Successful ultrasound guided FNA thyroid biopsy.
== END 2021-01-13 14:45 | disposition home or self-care (01) ==
LOC: RADPROMAIN 12:17
PROVIDERS: ATTEND Family Medicine
DX: E04.1 Nontoxic single thyroid nodule (principal)
CPT/HCPCS: 10005; 88173; 88305

== ENCOUNTER → 2021-01-28 | Outpatient (CLI) | payer OTHER ==
[2021-01-28 12:00] VITALS: BP 142/92; PULSE 76; RESP 16; TEMP 98.3
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
== END ==
LOC: WWCWWP 11:23
PROVIDERS: ATTEND Obstetrics & Gynecology
DX: Z12.31 Encounter for screening mammogram for malignant neoplasm of breast (principal); Z01.419 Encounter for gynecological examination (general) (routine) without abnormal findings; E11.9 Type 2 diabetes mellitus without complications; I10 Essential (primary) hypertension; M19.90 Unspecified osteoarthritis, unspecified site; N39.0 Urinary tract infection, site not specified; Z78.0 Asymptomatic menopausal state; Z79.84 Long term (current) use of oral hypoglycemic drugs; Z79.899 Other long term (current) drug therapy
CPT/HCPCS: 77063; 77067

== ENCOUNTER → 2022-02-24 | Outpatient (CLI) | payer OTHER ==
[2022-02-24 14:00] VITALS: BP 123/83; PULSE 91; RESP 18; TEMP 98.3
--- NOTE | 2022-02-24 14:33 | P.HPOB ---
History of Present Illness H&P Date: 02/24/22 Chief Complaint: The patient is here for her routine gynecologic exam and ma mmogram. This is a 61-year-old with an LMP of 2006. The patient is without gynecologic complaints and denies any postmenopausal bleeding. Review of Systems The patient has gained 11 pounds over the last year. She denies respiratory, cardiac, or G.I. problems. Past Medical History Past Medical History: Diabetes Mellitus, Hypertension, Osteoarthritis (OA) Additional Past Medical History / Comment(s): Type 2 diabetes. 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 History of Any Multi-Drug Resistant Organisms: None Reported Past Surgical History: Joint Replacement, Orthopedic Surgery, Tubal Ligation Additional Past Surgical History / Comment(s): ORIF LT ARM. COLONOSCOPY 2021(next after 5yr). D & C. Knee replacement 01/17/18 left. Right 2020. Cystoscopy for kidney stones. 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 - Past Family History Mother Family Medical History: Diabetes Mellitus Additional Family Medical History / Comment(s): Aortic aneurysm Father Family Medical History: Myocardial Infarction ([place]) Son(s) Additional Family Medical History / Comment(s): at age 19 from an aortic transposition. Brother(s) Family Medical History: Cancer Additional Family Medical History / Comment(s): 2 brothers with prostate cancer. Medications and Allergies Home Medications Medication Instructions Recorded Confirmed Type Cholecalciferol (Vitamin D3) 1,000 unit PO DAILY 01/06/18 02/24/22 History [Vitamin D3] Olmesartan/Hydrochlorothiazide 1 tab PO DAILY 01/06/18 02/24/22 History [Olmesartan-Hctz 40-25 mg Tab] [place] 3-500mg 500 mg PO DAILY 01/06/18 02/24/22 History Potassium Chloride [K-Tab ER] 10 meq PO DAILY 01/06/18 02/24/22 History calcium polycarbophiL [Fibercon] 625 mg PO DAILY 01/06/18 02/24/22 History metFORMIN HCL [Glucophage] 500 mg PO DAILY 01/06/18 02/24/22 History Aspirin 81 mg PO DAILY 01/10/21 02/24/22 History Cranberry Fruit Concentrate [Azo 250 mg PO DAILY 01/10/21 02/24/22 History Cranberry] Cyanocobalamin (Vitamin B-12) 1,000 mcg PO DAILY 01/10/21 02/24/22 History [Vitamin B-12] Ciprofloxacin HCl [Cipro] 500 mg PO BID 01/28/21 02/24/22 History Cetirizine HCl [Zyrtec] 10 mg PO DIRECTED PRN 02/24/22 02/24/22 History Magnesium 200 mg PO DAILY 02/24/22 02/24/22 History Allergies Allergy/AdvReac Type Severity Reaction Status Date / Time No Known Allergies Allergy Verified 02/24/22 13:53 Exam Vital Signs Temp Pulse Resp BP Pulse Ox 02/24/22 13:58 98.3 F 91 18 123/83 94 L Intake and Output 02/23/22 02/24/22 02/24/22 22:59 06:59 14:59 Other: Weight 108.862 kg Height 5 feet 5 inches, weight 240 pounds, BMI 39.9. This is a well-developed well-nourished heavyset white female who is alert and oriented times 3 in no acute distress. HEENT: Within normal limits. NECK: Supple without mass or thyromegaly. CHEST AND LUNGS: Clear to auscultation. HEART: Regular rate and rhythm. BREASTS: Are without mass or discharge. AXILLARY EXAM: Negative for adenopathy. BACK: Negative for CVA tenderness. ABDOMEN: Soft, nontender, without palpable masses. PELVIC EXAM: Normal external genitalia with mild atrophy. Cervix and vagina appear normal with mild atrophy. There is no unusual discharge. There is no evidence of prolapse. The uterus is midposition, nongravid size and nontender. There are no palpable adnexal masses or tenderness. RECTAL EXAM: Rectovaginal exam is negative for mass or tenderness and is negative for occult blood. EXTREMITIES: Nontender. IMPRESSION: 1. 61-year-old menopausal female with normal gynecologic exam. PLAN: 1. Pap smear cotest was performed. If this is negative, we will plan on discontinuing Pap smears after the age of 65. 2. Self breast awareness was discussed with the patient. We have also discussed symptoms associated with inflammatory breast cancer. 3. Screening mammogram will be done today. 4. Osteoporosis prevention was discussed. I have stressed the importance of adequate calcium, vitamin D and regular exercise. Recommended amounts of calcium and vitamin D were also discussed. Bone density test will be done today. This will be a baseline study. 5. She has completed her Covid vaccination series and has received 3 boosters. 6. She was advised to return in one year for her annual well woman exam.
--- NOTE | 2022-02-24 17:59 | BD ---
EXAMINATION TYPE: Axial Bone Density DATE OF EXAM: 02/24/2022 COMPARISON: BASELINE CLINICAL HISTORY: 61 years old Female. ICD-10 CODE: Z78.0 POST MENOPAUSAL WITHOUT HRT Height: 64.5 Weight: 236 FRAX RISK QUESTIONS: Family History (Parent hip fracture): NO). History of Fracture in Adulthood: YES Secondary Osteoporosis: NO Rheumatoid Arthritis: NO RISK FACTORS HISTORY OF: Family History of Osteoporosis: NO Active: YES Diet low in dairy products/other sources of calcium: NO Postmenopausal woman: YES Lost more than 2 inches in height since high school: NO Frequent falls: NO Poor Health: NO Hyperparathyroidism: NO Adrenal Insufficiency: NO MEDICATIONS: Additional Medications: YES METFORMIN , VIT D , HBP , VITAMINS EXAM MEASUREMENTS: Bone mineral densitometry was performed using the [employer] System. Bone mineral density as measured about the Lumbar spine is: ----- L1-L4(G/cm2): 1.162 T Score Values are as follows: ----- L1: -0.2 ----- L2: -0.4 ----- L3: -0.8 ----- L4: 0.7 ----- L1-L4: -0.2 Bone mineral density BASELINE Bone mineral density about the R hip (g/cm2): 0.865 Bone mineral density about the L hip (g/cm2): 0.863 T Score values are as follows: -----R Neck: -1.3 -----L Neck: -1.2 -----R Total: -1.1 -----L Total: -1.1 Bone mineral density BASELINE FRAX%s: The graph provided illustrates a 5.8% chance for a major osteoporotic fx and a 0.8% chance fo r the hips probability for fx in 10 years time. IMPRESSION: Osteopenia (T Score between -2.5 and -1). There is slightly increased risk of fracture and the patient may be considered for treatment. Re-Screen 2-5 years. NOTE: T-SCORE=SD OF THE YOUNG ADULT MEAN.
--- NOTE | 2022-02-25 11:05 | MM ---
Reason for Exam: Screening (asymptomatic). Last screening mammogram was performed 12 month(s) ago. Patient History: Menarche at age 11. First Full-Term at age 18. Postmenopausal. Maternal aunt had breast cancer, age 60. Risk Values: [place]ali 5 year model risk: 1.4%. NCI Lifetime model risk: 6.0%. Prior Study Comparison: 04/05/2018 Bilateral Screening Mammogram, [facility]. 05/02/2019 Bilateral Screening Mammogram, [facility]. 01/28/2021 Bilateral Screening Mammogram, [facility]. Tissue Density: There are scattered fibroglandular densities. Findings: Analyzed By CAD. Diffuse bilateral punctate calcifications are redemonstrated. Chronic nodularity central right breast is unchanged. No significant change from prior exams. Overall Assessment: Benign, BI-RAD 2 Management: Screening Mammogram of both breasts in 1 year. 1. Patient should continue monthly self breast exams. 2. A clinical breast exam by your physician is recommended on an annual basis. 3. This exam should not preclude additional follow-up of suspicious palpable abnormalities. Electronically signed and approved by: Felipe Doran M.D. Radiologist
== END ==
LOC: WWCWWP 13:48
PROVIDERS: ATTEND Obstetrics & Gynecology
DX: Z01.419 Encounter for gynecological examination (general) (routine) without abnormal findings (principal); Z12.31 Encounter for screening mammogram for malignant neoplasm of breast; Z78.0 Asymptomatic menopausal state; M85.88 Other specified disorders of bone density and structure, other site
CPT/HCPCS: 77063; 77067; 77080

== ENCOUNTER → 2023-07-20 | Outpatient (CLI) | payer MEDICARE, OTHER ==
--- NOTE | 2023-07-20 11:39 | P.HPOB ---
History of Present Illness H&P Date: 07/20/23 Chief Complaint: The patient is here for her routine gynecologic exam and ma mmogram. This is a 63-year-old -0-0-2 with an LMP of 2006. Patient states she has had very infrequent groin discomfort, but this does not occur if she does her stretching exercises regularly. She is otherwise without gynecologic complaints and denies any postmenopausal bleeding. Review of Systems The patient's weight has been stable over the last year. She denies respiratory, cardiac, or G.I. problems. Past Medical History Past Medical History: Diabetes Mellitus, Hypertension, Osteoarthritis (OA) Additional Past Medical History / Comment(s): Type 2 diabetes. 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 History of Any Multi-Drug Resistant Organisms: None Reported Past Surgical History: Joint Replacement, Orthopedic Surgery, Tubal Ligation Additional Past Surgical History / Comment(s): ORIF LT ARM. COLONOSCOPY 2 022(next after 5yr). D & C. Knee replacement 01/17/18 left. Right 2020. Cystoscopy for kidney stones. 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 She spends her [place] in [place]. - Past Family History Mother Family Medical History: Diabetes Mellitus Additional Family Medical History / Comment(s): Aortic aneurysm Father Family Medical History: Myocardial Infarction (VT) Son(s) Additional Family Medical History / Comment(s): at age 19 from an aortic transposition. Brother(s) Family Medical History: Cancer Additional Family Medical History / Comment(s): 2 brothers with prostate cancer. Medications and Allergies Home Medications Medication Instructions Recorded Confirmed Type Cholecalciferol (Vitamin D3) 1,000 unit PO DAILY 01/06/18 07/20/23 History [Vitamin D3] Olmesartan/Hydrochlorothiazide 1 tab PO DAILY 01/06/18 07/20/23 History [Olmesartan-Hctz 40-25 mg Tab] [place] 3-500mg 500 mg PO DAILY 01/06/18 07/20/23 History Potassium Chloride [K-Tab ER] 10 meq PO DAILY 01/06/18 07/20/23 History metFORMIN HCL [Glucophage] 500 mg PO DAILY 01/06/18 07/20/23 History Aspirin 81 mg PO DAILY 01/10/21 07/20/23 History Cranberry Fruit Concentrate [Azo 250 mg PO DAILY 01/10/21 07/20/23 History Cranberry] Cyanocobalamin (Vitamin B-12) 1,000 mcg PO DAILY 01/10/21 07/20/23 History [Vitamin B-12] Cetirizine HCl [Zyrtec] 10 mg PO DIRECTED PRN 02/24/22 07/20/23 History Magnesium 200 mg PO DAILY 02/24/22 07/20/23 History Allergies Allergy/AdvReac Type Severity Reaction Status Date / Time No Known Allergies Allergy Verified 07/20/23 11:33 Exam Blood pressure 131/93, height 5 feet 4 inches, weight 240 pounds, temperature 98.0, pulse 77, pulse oximeter 96%. Height 5 feet 4 inches, weight 240 pounds, BMI 41. This is a well-developed well-nourished white female who is alert and oriented times 3 in no acute distress. HEENT: Within normal limits. NECK: Supple without mass or thyromegaly. CHEST AND LUNGS: Clear to auscultation. HEART: Regular rate and rhythm. BREASTS: Are without mass or discharge. AXILLARY EXAM: Negative for adenopathy. BACK: Negative for CVA tenderness. ABDOMEN: Soft, nontender, without palpable masses. PELVIC EXAM: Normal external genitalia with mild atrophy. Cervix and vagina appear normal with mild atrophy. There is no unusual discharge. There is no evidence of prolapse. The uterus is midposition, nongravid size and nontender. There are no palpable adnexal masses or tenderness. RECTAL EXAM: Rectovaginal exam is negative for mass or tenderness and is negative for occult blood. EXTREMITIES: Nontender. IMPRESSION: 1. 63-year-old menopausal female with normal gynecologic exam. 2. History of osteopenia. PLAN: 1. Pap smears have been discontinued. Her last Pap smear cotest was on 02/24/2022. She has no history of cancerous or precancerous changes of the cervix. 2. Self breast awareness was discussed with the patient. We have also discussed symptoms associated with inflammatory breast cancer. 3. Screening mammogram will be done today. 4. Osteoporosis prevention was discussed. I have stressed the importance of adequate calcium, vitamin D and regular exercise. Recommended amounts of calcium and vitamin D were also discussed. We will plan on repeating the bone density test in 1 year. 5. She was advised to return in one year for her annual well woman exam.
[2023-07-20 12:00] VITALS: BP 131/93; PULSE 77; RESP 17; TEMP 98
== END ==
LOC: WWCWWP 10:31
PROVIDERS: ATTEND Obstetrics & Gynecology
DX: Z12.31 Encounter for screening mammogram for malignant neoplasm of breast (principal); M85.80 Other specified disorders of bone density and structure, unspecified site; Z78.0 Asymptomatic menopausal state
CPT/HCPCS: 77063; 77067